=== PATIENT | female | born 1970 | race Caucasian/White ===

== ENCOUNTER 2023-11-01 09:48 | Outpatient (CLI) | payer OTHER, SELFPAY | END 2023-11-01 09:49 | disposition home or self-care (01) | PROVIDERS: PCP Family Medicine; Visit Provider Family Medicine | DX: I10 Essential (primary) hypertension (principal); E78.2 Mixed hyperlipidemia; E11.9 Type 2 diabetes mellitus without complications; M79.7 Fibromyalgia | CPT/HCPCS: 80048; 80061; 84460; 86039; 86431 ==

== ENCOUNTER 2024-01-22 11:16 | Outpatient (CLI) | payer OTHER, SELFPAY ==
--- NOTE | 2024-01-22 11:30 | MM_ITS ---
Patient: CHRISTINE ORTIZ Facility:?[facility] Patient ID:?[id number] Site Patient ID:?[id number]. Site :?[id number] Study:?XRay-Breast Bilateral 3D W/CAD-01/22/2024 11:53:54 AM Ordering Physician:Efren Solis Final Report: BILATERAL SCREENING MAMMOGRAM WITH COMPUTER-AIDED DETECTION AND TOMOSYNTHESIS TECHNIQUE: CC and MLO views were obtained. These mammographic images have been obtained using full-field digital technique. These mammographic images were interpreted with the benefit of computer-aided detection. Breast Tomosynthesis was used in this interpretation. COMPARISON FILM: Baseline. FINDINGS: There are scattered areas of fibroglandular density IMPRESSION: There is no radiographic evidence for malignancy. ASSESSMENT: BI-RADS Category 1: Negative RECOMMENDATION: Routine screening mammogram in 1 year. A lay language report of this examination will be provided to the patient. Efren Soriano M.D. Diagnostic Radiologist [email or web address] Transcribed: 1:40 p.mKimmy cardona/Dictated by: Efren Soriano MD @ 01/23/2024 1:08:00 PM Signed by:?Efren Soriano MD @01/23/2024 1:50:29 PM (Electronic Signature)
== END 2024-01-22 11:17 | disposition home or self-care (01) ==
LOC: MAMMO 11:16
PROVIDERS: PCP Family Medicine; Visit Provider Family Medicine
DX: Z12.31 Encounter for screening mammogram for malignant neoplasm of breast (principal)
CPT/HCPCS: 77063; 77067

== ENCOUNTER 2024-12-02 09:23 | Outpatient (CLI) | payer OTHER, SELFPAY | END 2024-12-02 09:24 | disposition home or self-care (01) | PROVIDERS: PCP Family Medicine; Visit Provider Family Medicine | DX: I10 Essential (primary) hypertension (principal); E04.2 Nontoxic multinodular goiter; R53.83 Other fatigue | CPT/HCPCS: 80048; 80061; 84443 ==

== ENCOUNTER 2024-12-16 14:09 | Outpatient (CLI) | payer OTHER, SELFPAY ==
--- NOTE | 2024-12-16 14:30 | CRLHL7_ITS ---
For Patients: As a result of the Century Cures Act, medical imaging exams and procedure reports are released immediately into your electronic medical record. You may view this report before your referring provider. If you have questions, please contact your health care provider. INDICATION: Thyroid nodule. TECHNIQUE: Ultrasound thyroid with pina-scale and color Doppler analysis. COMPARISON: None. FINDINGS: Right lobe: 5.2 x 2.0 x 1.8 cm. Lesion 1: Predominantly solid isoechoic nodule on the right side measuring 2.2 x 1.5 x 1.6 cm (TR 3). There are scattered internal calcification within the nodule. Left lobe: 5.7 x 2.9 x 2.5 cm. Lesion 1: Large heterogeneous, isoechoic and predominantly solid nodule in the left thyroid lobe measuring 4.4 x 2.6 x 2.4 cm (TR 3). Internal calcification is identified within the nodule. Isthmus: 0.4 cm Multiple additional small subcentimeter sized the cystic nodules in bilateral thyroid lobes. There is mild increased vascularity of the thyroid. IMPRESSION: Bilateral thyroid TR 3 nodules measuring 2.2 cm on right side and 4.4 cm on left side. ACR TI-[email or web address] TR1: Benign No FNA TR2: Not Suspicious No FNA TR3: Mildly Suspicious FNA if greater than or equal to 2.5 cm Follow if greater than or equal to 1.5 cm TR4: Moderately Suspicious FNA if greater than or equal to 1.5 cm Follow if greater than or equal to 1 cm TR5: Highly Suspicious FNA if greater than or equal to 1 cm Follow if greater than or equal to 0.5 cm Dictated by Jeane Zee MD @ 12/17/2024 2:33:57 PM (Electronically Signed)
== END 2024-12-16 14:10 | disposition home or self-care (01) ==
LOC: US 14:11
PROVIDERS: PCP Family Medicine; Visit Provider Family Medicine
DX: E04.2 Nontoxic multinodular goiter (principal)
CPT/HCPCS: 76536

== ENCOUNTER 2024-12-18 10:58 | Outpatient (CLI) | payer OTHER, SELFPAY ==
[2024-12-18 11:22] LABS: Potassium* 3.7 mmol/L (3.6-5.1)
== END 2024-12-18 10:59 | disposition home or self-care (01) ==
PROVIDERS: PCP Family Medicine; Visit Provider Family Medicine
DX: R79.89 Other specified abnormal findings of blood chemistry (principal); E04.2 Nontoxic multinodular goiter
CPT/HCPCS: 36415; 84132